=== PATIENT | male | born 1995 | race Caucasian/White ===

== ENCOUNTER 2017-02-15 17:33 | Emergency (ER) | payer SELFPAY ==
[2017-02-15 17:58] VITALS: BMI 25.8
[2017-02-15 18:09] VITALS: TEMP 98.2
--- NOTE | 2017-02-15 18:36 | C.PDOC ---
History Of Present Illness 21 yo male c/o 2 weeks of improving flu like symptoms. pt also c/o 2 weeks of intermittent dysuria, foul smelling urine and 'rash' on head of his penis. pt repirts having unprotected sex with 2 different women in the last 2 months. denies abdominal pain, penile pain, teste and scrotal pain/swelling. and penile discharge. denies fever and chills. Time Seen by Provider: 02/15/17 18:00 Chief Complaint (Nursing): Cough, Cold, Congestion History Per: Patient History/Exam Limitations: no limitations Onset/Duration Of Symptoms: Days (14) Current Symptoms Are (Timing): Still Present Severity: Mild Past Medical History Reviewed: Historical Data, Nursing Documentation, Vital Signs Vital Signs: Last Vital Signs Temp 98.2 F 02/15/17 18:05 Pulse 72 02/15/17 18:05 Resp 17 02/15/17 18:05 BP 126/72 02/15/17 18:05 Pulse Ox 100 02/15/17 19:05 - Medical History PMH: No Chronic Diseases Other Surgeries: abdominal surgery Family History: States: Unknown Family Hx - Social History Hx Tobacco Use: No Hx Alcohol Use: No Hx Substance Use: No - Immunization History Hx Tetanus Toxoid Vaccination: No Hx Influenza Vaccination: No Hx Pneumococcal Vaccination: No Review Of Systems Constitutional: Negative for: Fever, Chills Gastrointestinal: Negative for: Nausea, Vomiting, Abdominal Pain Genitourinary: Positive for: Dysuria, Frequency, Rash (head of penis). Negative for: Penile Discharge, Penile Pain Neurological: Negative for: Weakness, Numbness Physical Exam - Physical Exam Appears: Non-toxic, No Acute Distress Skin: Normal Color, Warm, Dry ED Course And Treatment O2 Sat by Pulse Oximetry: 100 Medical Decision Making Medical Decision Making: pt reports he has been using lotrimin cream on head of penis, thought he had balanitis., no swelling noted to foreskin, no difficulty moving foreskin. Disposition Counseled Patient/Family Regarding: Studies Performed, Diagnosis, Need For Followup - Disposition Referrals: [facility] [Outside] Disposition: HOME/ ROUTINE Disposition Time: 19:24 Condition: STABLE Additional Instructions: Follow up in [facility] for further testing. You were handed information about the clinic with phone numbner and address. Recommend protected safe sex with condoms at all times. Recommend that you do not have sex until re-evlauated at the clinic. If tests come back positive, then your female partners need to be informed so they can treated. Instructions: Nonspecific Urethritis in Men (ED) Forms: [facility] (Hebrew), General Discharge Instructions - Clinical Impression Clinical Impression: Urethritis
[2017-02-15] MEDS ORDERED: cefTRIAXone (Rocephin) 250 mg Inj IM STA (18:48)
[2017-02-15 19:01] LABS: RBC URINE < 1 /hpf (0-3); URINE BILIRUBIN NEGATIVE (NEGATIVE); URINE BLOOD NEGATIVE (NEGATIVE); URINE COLOR Straw (YELLOW); URINE GLUCOSE (UA) NORMAL (Normal); URINE KETONE TRACE mg/dL (NEGATIVE); URINE LEUKOCYTE ESTERASE NEG Leu/uL (Negative); URINE PROTEIN NEGATIVE (NEGATIVE); URINE UROBILINOGEN NORMAL mg/dL (0.2-1.0); WBC URINE 2 /hpf (0-5)
[2017-02-15 19:24] VITALS: BP 119/65; PULSE 69; RESP 18
[2017-02-15 19:26] VITALS: O2SAT 100
== END 2017-02-15 19:33 | disposition home or self-care (01) ==
LOC: C.ER 17:33
DX: N34.2 Other urethritis (principal)
CPT/HCPCS: 81001; 87086; 87491; 87591; 96372; 99284; J0696